=== PATIENT | male | born 1975 | race Caucasian/White ===

== ENCOUNTER → 2018-03-14 | Outpatient (CLI) | payer BC ==
--- NOTE | 2018-03-14 16:38 | XR ---
EXAMINATION TYPE: XR knee complete bilateral DATE OF EXAM: 03/14/2018 COMPARISON: NONE HISTORY: 43-year-old male chronic bilateral knee pain TECHNIQUE: 3 views each side FINDINGS: No acute fracture, subluxation, or dislocation is seen. Small bilateral knee joint effusions are demo nstrated. Extensor mechanisms are intact. IMPRESSION: Small knee joint effusions. No acute osseous abnormality seen. If indicated, MRI can be considered.
== END | disposition home or self-care (01) ==
LOC: RADXRMAIN 10:49
PROVIDERS: ATTEND Physician Assistant
DX: M25.461 Effusion, right knee (principal); M25.462 Effusion, left knee

== ENCOUNTER → 2018-03-31 | Outpatient (CLI) | payer BC ==
--- NOTE | 2018-03-31 16:43 | XR ---
EXAMINATION TYPE: XR foot complete RT DATE OF EXAM: 03/31/2018 COMPARISON: NONE HISTORY: Heel pain TECHNIQUE: 3 views FINDINGS: I see no fracture nor dislocation. Metatarsals are intact. There are no erosions. IMPRESSION: Negative right foot exam. Normal calcaneus.
== END ==
LOC: RADXRMAIN 16:22
PROVIDERS: ATTEND Physician Assistant
DX: M79.671 Pain in right foot (principal)

== ENCOUNTER → 2018-12-07 | Outpatient (CLI) | payer BC ==
--- NOTE | 2018-12-08 07:19 | XR ---
EXAMINATION TYPE: XR elbow complete LT DATE OF EXAM: 12/07/2018 COMPARISON: NONE HISTORY: Pain FINDINGS: Three views of the elbow demonstrate no pathologic joint effusion. The osseous structures are intact . There is no acute fracture or dislocation. IMPRESSION: 1. No acute fracture or dislocation. If symptoms persist follow-up study in 7 to 10 days could be ob tained.
--- NOTE | 2018-12-08 07:20 | XR ---
EXAM TYPE: LUMBAR SPINE X RAY SERIES COMPARISON: NONE HISTORY: Back pain TECHNIQUE: 3 views are submitted. FINDINGS: Alignment is anatomic. The pedicles are intact. The transverse processes are intact. There is no s pondylolisthesis. Hypertrophic spurring involving the anterior margin of the bodies. 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 IMPRESSION: 1. Mild hypertrophic spurring.
== END | disposition home or self-care (01) ==
LOC: RADXRMAIN 17:13
PROVIDERS: ATTEND Family Medicine
DX: M77.8 Other enthesopathies, not elsewhere classified (principal); M79.602 Pain in left arm
CPT/HCPCS: 72100

== ENCOUNTER → 2019-01-23 | Outpatient (CLI) | payer BC | LOC: RADMRIMAIN 16:46 | PROVIDERS: ATTEND Orthopaedic Surgery | DX: Z53.9 Procedure and treatment not carried out, unspecified reason (principal) ==

== ENCOUNTER → 2019-01-25 | Outpatient (CLI) | payer BC ==
--- NOTE | 2019-01-26 09:14 | MR ---
MR left elbow HISTORY: Pain, injury Multiplanar multisequence imaging obtained through the left elbow Correlation plain film 01/11/2019 Abnormal signal present at the insertion of the biceps tendon on the proximal humerus compatible with partial biceps tendon tear. There is local fluid signal present. Bone marrow signal is maintained. T riceps tendon shows a normal insertion. No evident joint effusion. Articular cartilage signal is main tained. Muscle signal is normal. IMPRESSION: Partial biceps tendon tear. No retraction.
== END | disposition home or self-care (01) ==
LOC: RADMRIMAIN 18:52
PROVIDERS: ATTEND Orthopaedic Surgery
DX: S46.212A Strain of muscle, fascia and tendon of other parts of biceps, left arm, initial encounter (principal)

== ENCOUNTER → 2019-06-02 | Outpatient (CLI) | payer BC ==
--- NOTE | 2019-06-02 18:01 | XR ---
EXAMINATION TYPE: XR Hip Bilateral and AP pelvis DATE OF EXAM: 06/02/2019 COMPARISON: None HISTORY: Pain TECHNIQUE: A single AP view of the pelvis is obtained. Two views of the bilateral hip are obtained. FINDINGS: There is no acute fracture/dislocation evident in the pelvis. The hip and sacroiliac join ts appear symmetric and unremarkable. The overlying soft tissue appears unremarkable. No soft tissue ossification is seen adjacent to the upper and lower margin of the right femoral neck is nonspecific. Mild hypertrophic change of the acetabulum and femoral head bilaterally mild concentr ic narrowing of the joint space. No erosive changes. Can be associated with femoral acetabular imping ement. IMPRESSION: 1. 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
== END ==
LOC: RADXRMAIN 16:12
PROVIDERS: ATTEND Family Medicine
DX: M12.852 Other specific arthropathies, not elsewhere classified, left hip (principal); M12.851 Other specific arthropathies, not elsewhere classified, right hip
CPT/HCPCS: 73521

== ENCOUNTER → 2019-07-19 | Outpatient (CLI) | payer BC ==
--- NOTE | 2019-07-19 20:40 | MR ---
MR left hip HISTORY: Left hip pain Multiplanar multisequence imaging obtained through the pelvis with small [id number] images through the left hip Correlation to plain film pelvis 07/10/2019 Bone marrow signal is maintained. The left hip shows T2 hyperintensity at the level of the proximal a spect of the acetabular labrum consistent with labral tear. Articular cartilage signal is maintained. There is no evident joint effusion. No evident free fluid within the pelvis. Sacroiliac joints are maintained. Normal gluteus tendon inse rtions. Muscle signal is normal. Urinary bladder shows an unremarkable appearance. IMPRESSION: Labral tear or left hip.
== END | disposition home or self-care (01) ==
LOC: RADMRIMAIN 18:26
PROVIDERS: ATTEND Orthopaedic Surgery
DX: M25.552 Pain in left hip (principal)

== ENCOUNTER → 2019-09-01 | Outpatient (CLI) | payer BC ==
--- NOTE | 2019-09-01 23:28 | XR ---
EXAMINATION TYPE: XR chest 2V DATE OF EXAM: 09/01/2019 COMPARISON: NONE HISTORY: Midsternal chest pain and pressure. TECHNIQUE: Frontal and lateral views of the chest are obtained. FINDINGS: There is no focal air space opacity, pleural effusion, or pneumothorax seen. The cardiac silhouette size is within normal limits. The osseous structures are intact. IMPRESSION: No acute process.
== END | disposition home or self-care (01) ==
LOC: RAD 16:47
PROVIDERS: ATTEND Nurse Practitioner Family
DX: R07.9 Chest pain, unspecified (principal)
CPT/HCPCS: 71046

== ENCOUNTER 2023-09-01 10:08 | Day surgery (SDC) | payer BC ==
[~2023-09-01 10:08] MED LIST: LIDOCAINE 1% (10MG/ML) FOR IV START INTRADERMA PRN; ONDANSETRON 4 MG/2 ML VIAL IVP PRN
[2023-09-01] MEDS: LACTATED RINGERS 1,000 ML IV SCH (10:45)
[2023-09-01 11:02] VITALS: RESP 16; TEMP 98.3
[2023-09-01] MEDS ORDERED: PROPOFOL 10 MG/ML 20 ML VIAL IV ONE (11:36)
--- NOTE | 2023-09-01 11:52 | P.PCN ---
Date of Procedure: 09/01/23 Procedure(s) Performed: BRIEF HISTORY: Patient is a 48-year-old pleasant white male scheduled for an elective colonoscopy as a part of evaluation of chronic diarrhea for the last several months duration. His grandfather diagnosed with colon cancer at age 60. PROCEDURE PERFORMED: Colonoscopy with random biopsy/snare polypectomy PREOPERATIVE DIAGNOSIS: Chronic diarrhea and family history of colon cancer. IV sedation per Anesthesia. PROCEDURE: After informed consent was obtained, the patient, was brought into the endoscopy unit. IV sedation was administered by Anesthesia under continuous monitoring. Digital rectal examination was normal. Initially the Olympus CF-160 flexible video colonoscope was then inserted in the rectum, gradually advanced into the cecum without any difficulty. Careful examination was performed as the scope was gradually being withdrawn. Ileocecal valve and the appendiceal orifice were visualized and appeared normal. Prep was excellent. Mucosa of the cecum, ascending colon, appeared normal. In the transverse colon there was a 5 mm polyp that was removed by cold snare polypectomy. Rest of the transverse colon, descending colon, sigmoid colon, and rectum appeared normal. In the rectum there was a 4 mm polyp that was removed by cold snare polypectomy. Random b iopsies were done from ascending and descending colon to rule out microscopic/collagenous colitis Retroflexion was performed in the rectum and no lesions were seen. The patient tolerated the procedure well. IMPRESSION: 5 mm distal transverse colon polyp is post snare POLYPECTOMY 4 mm rectal polyp status post cold snare polypectomy Rest of the colon appeared normal. RECOMMENDATIONS: Findings of this examination were discussed with the patient as well as his family. He was advised to follow with the biopsy results and have a repeat colonoscopy in 5 years based on the biopsy results
[2023-09-01 12:47] VITALS: BP 125/85; PULSE 84
== END 2023-09-01 13:01 | disposition home or self-care (01) ==
LOC: ORWHC2ENDO 10:08
PROVIDERS: ATTEND Internal Medicine Gastroenterology
DX: D12.3 Benign neoplasm of transverse colon (principal); K62.1 Rectal polyp; G47.33 Obstructive sleep apnea (adult) (pediatric); F90.9 Attention-deficit hyperactivity disorder, unspecified type; Z80.0 Family history of malignant neoplasm of digestive organs; Z79.899 Other long term (current) drug therapy
CPT/HCPCS: 88305; 45380; 45385; J2704